=== PATIENT | female | born 1945 | race Caucasian/White ===

== ENCOUNTER → 2022-01-06 | Outpatient (CLI) | payer MEDICARE, OTHER | LOC: MAMMO 09:20 | PROVIDERS: ATTEND Internal Medicine | DX: Z12.31 Encounter for screening mammogram for malignant neoplasm of breast (principal) | CPT/HCPCS: 77067 ==

== ENCOUNTER → 2022-02-03 | Outpatient (CLI) | payer MEDICARE, OTHER | LOC: MAMMO 10:30 | PROVIDERS: ATTEND Internal Medicine | DX: N64.89 Other specified disorders of breast (principal) ==

== ENCOUNTER → 2024-04-26 | Outpatient (REF) | payer MEDICARE, OTHER | LOC: RAD 13:07 | PROVIDERS: ATTEND Internal Medicine Nephrology | DX: R60.9 Edema, unspecified (principal); I82.431 Acute embolism and thrombosis of right popliteal vein; I82.412 Acute embolism and thrombosis of left femoral vein; I82.812 Embolism and thrombosis of superficial veins of left lower extremity | CPT/HCPCS: 93970 ==

== ENCOUNTER → 2024-05-28 | Outpatient (REF) | payer MEDICARE, OTHER | LOC: RAD 10:02 | PROVIDERS: ATTEND Nurse Practitioner | DX: I82.412 Acute embolism and thrombosis of left femoral vein (principal) | CPT/HCPCS: 93971 ==

== ENCOUNTER → 2024-05-30 | Outpatient (REF) | payer MEDICARE, OTHER | LOC: MAMMO 09:14 | PROVIDERS: ATTEND Internal Medicine | DX: Z12.31 Encounter for screening mammogram for malignant neoplasm of breast (principal); M85.88 Other specified disorders of bone density and structure, other site | CPT/HCPCS: 77067; 77080 ==